=== PATIENT | male | born 1950 ===

== ENCOUNTER → 2021-07-12 08:00 | Outpatient (CLI) | payer OTHER ==
[~2021-07-12 08:00] MED LIST: AZOR 10-40 MG1 EACH PO; GLIPIZIDE XL10 MG PO
== END | disposition home or self-care (01) ==
LOC: LAB 08:00 → ADM 11:30 → EDSTATUS 07-15 11:30 → CIR.AMB 07-15 11:30
PROVIDERS: ATTEND Surgery
DX: K62.5 Hemorrhage of anus and rectum (principal); K64.2 Third degree hemorrhoids; K62.89 Other specified diseases of anus and rectum